=== PATIENT | male | born 1985 | race Caucasian/White ===

== ENCOUNTER 2022-03-16 12:13 | Outpatient (CLI) | payer OTHER, SELFPAY ==
[2022-03-16] MEDS ORDERED: Iopamidol 370 76% 100 ML VIAL ONE (14:37)
== END 2022-03-16 12:14 | disposition home or self-care (01) ==
LOC: CSHCT 12:13
PROVIDERS: ATTEND Internal Medicine
DX: R13.10 Dysphagia, unspecified (principal); R63.4 Abnormal weight loss; R10.84 Generalized abdominal pain; R16.0 Hepatomegaly, not elsewhere classified
CPT/HCPCS: 70491; 71260; 74177; Q9967